=== PATIENT | male | born 2000 | race Caucasian/White ===

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

== ENCOUNTER 2018-08-24 04:28 | Emergency (ER) | payer BC ==
[2018-08-24 04:33] VITALS: TEMP 96.5
[2018-08-24 05:27] LABS: HEMOGLOBIN 16.8 g/dl (12.5-16.1); MEAN CELL VOLUME 82 fl (80.0-95.0); MEAN CORPUSCULAR HEMOGLOBIN 28 pg (26.0-32.0); MEAN CORPUSCULAR HGB CONC 34 g/dl (33.0-37.0); MEAN PLATELET VOLUME 10.1 fl (7.4-10.4); PLATELET COUNT 371 K/mm3 (130-400); RED BLOOD COUNT 5.95 M/mm3 (4.20-5.60); REDCELL DISTRIBUTION WIDTH-CV 12.8 % (11.5-14.5)
[2018-08-24 05:43] LABS: ALANINE AMINOTRANSFERASE 47 U/L (21-72); ALBUMIN 4.8 gm/dL (3.5-5.0); ALKALINE PHOSPHATASE 107 U/L (50-136); ANION GAP 18 mmol/L (7-16); AST,SGOT 51 U/L (15-37); BILIRUBIN,TOTAL 1.3 mg/dL (0.0-1.0); BLOOD UREA NITROGEN 20 mg/dL (9-20); CALCIUM 9.7 mg/dL (8.4-10.2); CARBON DIOXIDE 18 mmol/L (22-30); CHLORIDE 103 mmol/L (98-107); CREATINE KINASE 372 U/L (55-170); CREATININE, serum 1.46 mg/dL (0.66-1.25); GLUCOSE 213 mg/dL (74-106); SODIUM 138 mmol/L (137-145); TOTAL PROTEIN 8.4 gm/dL (6.4-8.2)
[2018-08-24 05:52] LABS: TROPONIN-I 0.016 ng/mL (0.000-0.035)
[2018-08-24 05:53] LABS: ALCOHOL(ethanol),MEDICAL < 10 mg/dL; POTASSIUM 2.8 mmol/L (3.4-5.0)
[2018-08-24 06:35] LABS: BAND 43 % (0-10); EOSINOPHIL 2 % (0-4); NEUTROPHILS 44 % (42.0-75.2)
[2018-08-24 06:36] LABS: LYMPHOCYTE 5 % (20.0-51.0); PLATELET ESTIMATE NORMAL (NORMAL)
[2018-08-24 09:10] VITALS: BP 122/77; PULSE 86
== END 2018-08-24 09:29 | disposition short-term general hospital (02) ==
LOC: COL.ER 04:28
PROVIDERS: Emergency Medicine
DX: S93.122A Dislocation of metatarsophalangeal joint of left great toe, initial encounter (principal); S91.102A Unspecified open wound of left great toe without damage to nail, initial encounter; S61.411A Laceration without foreign body of right hand, initial encounter; S00.81XA Abrasion of other part of head, initial encounter; S20.319A Abrasion of unspecified front wall of thorax, initial encounter; S80.212A Abrasion, left knee, initial encounter; S80.211A Abrasion, right knee, initial encounter; S70.312A Abrasion, left thigh, initial encounter; S70.311A Abrasion, right thigh, initial encounter; T33.832A Superficial frostbite of left toe(s), initial encounter; T33.831A Superficial frostbite of right toe(s), initial encounter; F16.10 Hallucinogen abuse, uncomplicated; H57.04 Mydriasis; Z23 Encounter for immunization; Y04.8XXA Assault by other bodily force, initial encounter; X31.XXXA Exposure to excessive natural cold, initial encounter
CPT/HCPCS: J0295; J2060; J2270; J3480; J7030

== ENCOUNTER 2018-12-28 17:50 | Emergency (ER) | payer BC ==
[~2018-12-28] VITALS: Ht 182.9 cm; Wt 118.2 kg
[2018-12-28 18:01] VITALS: BP 128/62; TEMP 98
[2018-12-28 19:04] VITALS: PULSE 89
== END 2018-12-28 19:05 | disposition home or self-care (01) ==
LOC: COL.ER 17:50
DX: S05.01XA Injury of conjunctiva and corneal abrasion without foreign body, right eye, initial encounter (principal); F17.210 Nicotine dependence, cigarettes, uncomplicated; W22.8XXA Striking against or struck by other objects, initial encounter

== ENCOUNTER 2021-08-15 23:35 | Emergency (ER) | payer BC ==
[~2021-08-15] VITALS: Ht 182.9 cm; Wt 127.3 kg
[2021-08-15 23:40] VITALS: TEMP 98.2
[2021-08-16 00:53] VITALS: BP 159/94; PULSE 114
== END 2021-08-16 00:53 | disposition home or self-care (01) ==
LOC: COL.ER 23:35
DX: J06.9 Acute upper respiratory infection, unspecified (principal); J45.909 Unspecified asthma, uncomplicated; F17.210 Nicotine dependence, cigarettes, uncomplicated; Z20.822 Contact with and (suspected) exposure to COVID-19; Z79.899 Other long term (current) drug therapy